=== PATIENT | female | born 2000 | race African-American/Black ===

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

== ENCOUNTER 2018-01-23 11:29 | Emergency (ER) | payer OTHER ==
[2018-01-23 12:45] LABS: BASO % 0.3 % (0.0-1.0); EOS % 0.3 % (0.0-3.0); HEMOGLOBIN 13.7 g/dl (12.0-15.5); IMMATURE GRANULOCYTE % 1.6 % (0-3.0); LYMPH # 1.6 10^3/uL (1.5-6.5); LYMPH % 16.1 % (24.0-44.0); MEAN CORPUSCULAR HEMOGLOBIN 30.6 pg (27.0-33.0); MEAN CORPUSCULAR HGB CONC 35.1 g/dl (32.0-36.5); MEAN CORPUSCULAR VOLUME 87.2 fl (80.0-96.0); MONO # 0.8 10^3/uL (0.0-0.8); MONO % 7.9 % (0.0-5.0); NEUTROPHILS # 7.5 10^3/uL (1.8-7.7); NEUTROPHILS % 73.8 % (36.0-66.0); PLATELET COUNT, AUTOMATED 194 10^3/uL (150-450); RED BLOOD COUNT 4.47 10^6/uL (4.00-5.40); RED CELL DISTRIBUTION WIDTH 13.5 % (11.5-14.5); WHITE BLOOD COUNT 10.2 10^3/uL (4.0-10.0)
== END 2018-01-23 14:15 | disposition home or self-care (01) ==
LOC: M ED 11:29
DX: O44.02 Complete placenta previa NOS or without hemorrhage, second trimester (principal); Z3A.14 14 weeks gestation of pregnancy; O9A.212 Injury, poisoning and certain other consequences of external causes complicating pregnancy, second trimester; S39.91XA Unspecified injury of abdomen, initial encounter; W50.0XXA Accidental hit or strike by another person, initial encounter; Y92.89 Other specified places as the place of occurrence of the external cause; Y99.0 Civilian activity done for income or pay; O99.512 Diseases of the respiratory system complicating pregnancy, second trimester; J45.909 Unspecified asthma, uncomplicated
CPT/HCPCS: 76817

== ENCOUNTER → 2018-02-25 | Outpatient (CLI) | payer OTHER | LOC: M RAD 09:20 | DX: Z36.89 Encounter for other specified antenatal screening (principal); O32.1XX0 Maternal care for breech presentation, not applicable or unspecified; Z3A.20 20 weeks gestation of pregnancy | CPT/HCPCS: 76816 ==

== ENCOUNTER 2018-04-08 09:13 | Emergency (ER) | payer OTHER ==
[~2018-04-08] VITALS: Ht 177.8 cm; Wt 88.6 kg
[2018-04-08 09:13] VITALS: BP 119/58
[~2018-04-08 09:13] MED LIST: KETO10TAB PO; PROAAER10 INH; RIGHTAB2; birth control
[2018-04-08] MEDS ORDERED: ACETAMINOPHEN 325 MG TAB PO ONE (09:45)
[2018-04-08] MEDS ORDERED: MACR100C43 PO (10:23)
== END 2018-04-08 10:55 | disposition home or self-care (01) ==
LOC: M ED 09:13
DX: O23.42 Unspecified infection of urinary tract in pregnancy, second trimester (principal); O26.892 Other specified pregnancy related conditions, second trimester; Z3A.25 25 weeks gestation of pregnancy; O99.512 Diseases of the respiratory system complicating pregnancy, second trimester; O99.412 Diseases of the circulatory system complicating pregnancy, second trimester

== ENCOUNTER 2018-06-05 19:32 | Emergency (ER) | payer OTHER ==
[~2018-06-05] VITALS: Ht 177.8 cm; Wt 100.0 kg
[2018-06-05 19:32] VITALS: BP 121/69
[~2018-06-05 19:32] MED LIST changes: +MACR100C43 PO
[2018-06-05] MEDS ORDERED: PREN200C PO (19:36)
== END 2018-06-05 20:48 | disposition home or self-care (01) ==
LOC: M ED 19:32
DX: O99.89 Other specified diseases and conditions complicating pregnancy, childbirth and the puerperium (principal); S60.454A Superficial foreign body of right ring finger, initial encounter; R22.31 Localized swelling, mass and lump, right upper limb; W49.04XA Ring or other jewelry causing external constriction, initial encounter; Y92.89 Other specified places as the place of occurrence of the external cause; Z3A.00 Weeks of gestation of pregnancy not specified

== ENCOUNTER 2018-10-23 14:27 | Emergency (ER) | payer OTHER ==
[~2018-10-23] VITALS: Ht 177.8 cm; Wt 86.9 kg
[~2018-10-23 14:27] MED LIST changes: +PREN200C PO
--- NOTE | 2018-10-23 15:24 | REP ---
Clinical: Trauma. Technique: AP, lateral, bilateral oblique views left hand . Findings: The osseous structures and joint spaces are intact and normal. There is no evidence for acute fracture or dislocation. Surrounding soft tissues are unremarkable. No subcutaneous emphysema or radiodense foreign body. Impression: Normal left hand series . No acute fracture or dislocation. Electronically Signed by Mt Munoz MD 10/23/2018 03:15 P
[2018-10-23] MEDS ORDERED: IBUPROFEN 600 MG TAB PO ONE (15:30)
[2018-10-23 15:52] VITALS: BP 137/73
== END 2018-10-23 15:53 | disposition home or self-care (01) ==
LOC: M ED 14:27
DX: S67.191A Crushing injury of left index finger, initial encounter (principal); W23.1XXA Caught, crushed, jammed, or pinched between stationary objects, initial encounter; Y92.009 Unspecified place in unspecified non-institutional (private) residence as the place of occurrence of the external cause; Y93.89 Activity, other specified; R01.1 Cardiac murmur, unspecified; J45.909 Unspecified asthma, uncomplicated